=== PATIENT | male | born 1990 | race Caucasian/White ===

== ENCOUNTER 2018-09-10 20:57 | Emergency (ER) | payer OTHER ==
[2018-09-10 21:33] LABS: BILIRUBIN,URINE NEGATIVE (NEGATIVE); CLARITY,URINE CLEAR (CLEAR); GLUCOSE, URINE (UA) NEGATIVE (NEGATIVE); KETONES,URINE (UA) NEGATIVE (NEGATIVE); LEUKOCYTE ESTERASE, URINE NEGATIVE (NEGATIVE); NITRITE,URINE NEGATIVE (NEGATIVE); OCCULT BLOOD,URINE NEGATIVE (NEGATIVE); PH,URINE 5.5 PH (5.0-7.5); PROTEIN,URINE NEGATIVE (NEGATIVE); UROBILINOGEN,URINE 0.2 (NORMAL) E.U./dL (NORMAL)
--- NOTE | 2018-09-10 21:53 | ED Physician Documentation ---
PD HPI BACK PAIN - Stated complaint Stated Complaint: BK/SIDE PX - Chief complaint Chief Complaint: Abd Pain - History obtained from History obtained from: Patient - History of Present Illness Timing - onset: How many weeks ago (3) Timing - duration: Weeks (3) Timing - details: Gradual onset Pain level now: 7 Location: Lower, Right Quality: Pain, Sharp, Other (Tingling) Associated symptoms: No: Fever, Weakness, Numbness, Unable to urinate, Hematuria Improves with: Nothing Similar symptoms before: Has not had sx before Recently seen: Not recently seen - Additional information Additional information: This is a 27-year-old who presents with his complaints that for the past 3 weeks he started developing right lower/flank pain was initially intermittent but has become just constant now he describes it as a tingling sensation but then sharp jabbing happens as well. Is now become a constant dull throb at a 7 out of 10. He has not taken any medications for it but then stated that he was using Excedrin and what he considers excessive dosing but his last dose was at 10 AM today. It has not seemed to help the pain at all. Denies any injury. There is no pain radiating to the leg. He is not short of breath or coughing. No abdominal pain. Denies dysuria or hematuria although he does have a history of kidney stones 5 or 6 years ago that passed spontaneously. Denies fever. Patient states that he has a history of migraines and he ran out of his migraine medication but [facility] [place] [facility] He does not know what the medication was. Review of Systems Constitutional: denies: Fever Respiratory: denies: Dyspnea, Cough GI: denies: Abdominal Pain, Nausea, Vomiting : denies: Dysuria, Frequency, Hematuria Skin: denies: Rash Musculoskeletal: reports: Back pain Neurologic: denies: Numbness PD PAST MEDICAL HISTORY - Past Medical History Past Medical History: Yes Neuro: Migraines - Past Surgical History Past Surgical History: No - Present Medications Home Medications: Ambulatory Orders Medication Instructions Recorded Confirmed No Known Home Medications 09/10/18 09/10/18 - Allergies Allergies/Adverse Reactions: Allergies Allergy/AdvReac Type Severity Reaction Status Date / Time No Known Drug Allergies Allergy Verified 09/10/18 21:05 - Social History Does the pt smoke?: No Smoking Status: Never smoker Does the pt drink ETOH?: Yes Does the pt have substance abuse?: No - Immunizations Immunizations are current?: Yes PD ED PE NORMAL - Vitals Vital signs reviewed: Yes - General General: Alert and oriented X 3, No acute distress, Well developed/nourished - HEENT HEENT: Atraumatic - Cardiac Cardiac: RRR, No murmur - Respiratory Respiratory: No respiratory distress, Clear bilaterally - Abdomen Abdomen: Normal bowel sounds, Soft, Non tender - Back Back: Other (Patient complains of pain with palpation to the right paraspinal muscles. 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 5 out of 5 ankle dorsiflexion. Sensation is intact to light touch. There is a negative straight leg raise.) - Psych Psych: Normal mood, Normal affect Results - Vitals Vitals: Vital Signs - 24 hr 09/10/18 21:03 Temperature 36.1 C L Heart Rate 71 Respiratory 16 Rate Blood Pressure 127/79 O2 Saturation 99 Oxygen O2 Source Room air - Labs Labs: Laboratory Tests 09/10/18 21:11 Urine Color YELLOW Urine Clarity CLEAR Urine pH 5.5 Ur Specific [place] <=1.005 Urine Protein NEGATIVE Urine Glucose (UA) NEGATIVE Urine Ketones NEGATIVE Urine Occult Blood NEGATIVE Urine Nitrite NEGATIVE Urine Bilirubin NEGATIVE Urine Urobilinogen 0.2 (NORMAL) Ur Leukocyte Esterase NEGATIVE Ur Microscopic Review NOT INDICATED Urine Culture Comments NOT INDICATED PD MEDICAL DECISION MAKING - ED course ED course: Patient declined anything for pain here stating that he does not want medication he just wants "peace of mind" but nothing serious is going on. His urine is negative for blood or infection. I suspect this is musculoskeletal. No indication that there is nerve impingement syndrome. Will recommend ibuprofen and offer a prescription for Flexeril if he desires. Departure - Departure Disposition: 01 Home, Self Care Clinical Impression: Acute lumbar myofascial strain Qualifiers: Encounter type: initial encounter Qualified Code(s): S39.012A - Strain of muscle, fascia and tendon of lower back, initial encounter Condition: Good Instructions: ED Sprain Strain Lumbar, Exercises Back Lower Back Stretch Follow-Up: [facility] [Provider Group] Comments: Take ibuprofen 3 to 4 tablets every 8 hours with food for the back pain. Ice can help and do stretching exercises and the discharge instructions. May use Flexeril at night to sleep if you cannot get to sleep. [facility].
[2018-09-10] MEDS ORDERED: CYCLOBENZAPRINE 10 MG Prepack 2 PO PRN (22:41)
[2018-09-10 22:53] VITALS: BP 117/78
== END 2018-09-10 22:53 | disposition home or self-care (01) ==
LOC: ED 20:57
DX: S39.012A Strain of muscle, fascia and tendon of lower back, initial encounter (principal); X58.XXXA Exposure to other specified factors, initial encounter
CPT/HCPCS: 81001; 81003; 87086; 99282; 99283

== ENCOUNTER 2018-12-16 15:04 | Emergency (ER) | payer OTHER ==
[2018-12-16 15:13] VITALS: BP 125/68
--- NOTE | 2018-12-16 15:52 | ED Physician Documentation ---
PD HPI BACK PAIN - Stated complaint Stated Complaint: BACK PAIN, CANT STAND STRAIGHT - Chief complaint Chief Complaint: Back Pain - History obtained from History obtained from: Patient - History of Present Illness Timing - onset: Today Timing - duration: Hours (3) Timing - details: Abrupt onset Pain level max: 8 Pain level now: 8 Location: Lower, Right, Left Quality: Pain, Spasm, Similar to prior episodes Associated symptoms: No: Fever, Weakness, Numbness, Incontinent of urine, Unable to urinate, Hematuria, Incontinent of stool Improves with: Rest Worsened by: Movement Contributing factors: Lifting (tried to lift a garage door.). No: Trauma, Anticoagulated, Cancer, IVDA Recently seen: Not recently seen Review of Systems Constitutional: denies: Fever, Chills : denies: Dysuria, Frequency, Hesitancy, Unable to Void, Incontinent Skin: denies: Rash Neurologic: denies: Focal weakness, Numbness, Head injury PD PAST MEDICAL HISTORY - Past Medical History Past Medical History: Yes Neuro: Migraines - Past Surgical History Past Surgical History: No - Present Medications Home Medications: Ambulatory Orders Medication Instructions Recorded Confirmed Meloxicam [Mobic] 15 mg PO DAILY PRN #20 tablet 12/16/18 Methocarbamol [Robaxin] 500 mg PO Q6H PRN #20 tablet 12/16/18 - Allergies Allergies/Adverse Reactions: Allergies Allergy/AdvReac Type Severity Reaction Status Date / Time nickel Allergy Unknown Verified 12/16/18 15:13 - Social History Does the pt smoke?: No Smoking Status: Never smoker Does the pt drink ETOH?: Yes Does the pt have substance abuse?: No - Immunizations Immunizations are current?: Yes PD ED PE NORMAL - Vitals Vital signs reviewed: Yes - General General: Alert and oriented X 3, No acute distress, Well developed/nourished - HEENT HEENT: Moist mucous membranes - Neck Neck: Supple, no meningeal sign - Cardiac Cardiac: RRR, Strong equal pulses - Respiratory Respiratory: No respiratory distress, Clear bilaterally - Abdomen Abdomen: Soft, Non tender, Non distended - Back Back: No spinal TTP, Other (Paraspinal muscle spasm present.) - Derm Derm: Warm and dry - Extremities Extremities: Other (Normal bilateral lower extremity patellar and ankle jerk reflexes. Normal great toe extension bilaterally. 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, No motor deficit, No sensory deficit, Normal speech - Psych Psych: Normal mood, Normal affect Results - Vitals Vitals: Vital Signs - 24 hr 12/16/18 15:08 Temperature 98.2 C H Heart Rate 85 Respiratory 16 Rate Blood Pressure 125/68 O2 Saturation 100 Oxygen O2 Source Room air PD MEDICAL DECISION MAKING - ED course Complexity details: reviewed old records, considered differential (No cauda equina, no spinal epidural abscess, no fracture, no aortic dissection or evidence of aneursym rupture), d/w patient ED course: 28-year-old male presents to the emergency department with low back strain and spasm. No indication for acute imaging. No evidence of cauda equina, epidural abscess. Declines pain medication here. Will prescribe medication for home and he can follow-up with his doctor. Patient counseled regarding signs and symptoms for which I believe and urgent re-evaluation would be necessary. Patient with good understanding of and agreement to plan and is comfortable going home at this time This document was made in part using voice recognition software. While efforts are made to proofread this document, sound alike and grammatical errors may occur. Departure - Departure Disposition: Home, Self Care Clinical Impression: Acute lumbar myofascial strain Qualifiers: Encounter type: initial encounter Qualified Code(s): S39.012A - Strain of muscle, fascia and tendon of lower back, initial encounter Condition: Good Instructions: ED Sprain Strain Lumbar Follow-Up: [facility] [Provider Group] - Within 1 week Prescriptions: Meloxicam [Mobic] 15 mg PO DAILY PRN #20 tablet PRN Reason: pain Methocarbamol [Robaxin] 500 mg PO Q6H PRN #20 tablet PRN Reason: back spasm Comments: Use the medications as prescribed. Return if you worsen. Follow-up with your doctor for further care. Do not drive or operate heavy machinery while taking the Robaxin. Continue gentle stretching at home. Forms: Activity restrictions Discharge Date/Time: 12/16/18 15:58
== END 2018-12-16 15:58 | disposition home or self-care (01) ==
LOC: ED 15:04
DX: S39.012A Strain of muscle, fascia and tendon of lower back, initial encounter (principal); X50.0XXA Overexertion from strenuous movement or load, initial encounter; Y93.89 Activity, other specified; Y92.008 Other place in unspecified non-institutional (private) residence as the place of occurrence of the external cause; M62.830 Muscle spasm of back
CPT/HCPCS: 99282; 99284

== ENCOUNTER 2019-01-30 09:36 | Emergency (ER) | payer OTHER ==
[2019-01-30 10:09] LABS: BASOPHILS % (AUTO) 0.6 %; EOSINOPHILS # (AUTO) 0.1 10^3/uL (0.0-0.7); EOSINOPHILS % (AUTO) 2.2 %; HGB - HEMOGLOBIN 13.5 g/dL (14.0-18.0); LYMPHOCYTES # (AUTO) 1.8 10^3/uL (1.5-3.5); LYMPHOCYTES % (AUTO) 35.3 %; MEAN CORPUSCULAR HEMOGLOBIN 31.2 pg (27.0-31.0); MEAN CORPUSCULAR HGB CONC 33.7 g/dL (32.0-36.0); MEAN CORPUSCULAR VOLUME 92.6 fL (80.0-94.0); MEAN PLATELET VOLUME 9.8 fL (7.4-11.4); MONOCYTES # (AUTO) 0.5 10^3/uL (0.0-1.0); MONOCYTES % (AUTO) 10.4 %; NEUTROPHILS # (AUTO) 2.6 10^3/uL (1.5-6.6); NEUTROPHILS % (AUTO) 51.3 %; PLT - PLATELET COUNT 283 10^3/uL (130-450); RED BLOOD COUNT 4.33 10^6/uL (4.70-6.10); RED CELL DISTRIBUTION WIDTH 12.2 % (12.0-15.0)
[2019-01-30 10:17] LABS: BILIRUBIN,URINE NEGATIVE (NEGATIVE); GLUCOSE, URINE (UA) NEGATIVE (NEGATIVE); KETONES,URINE (UA) NEGATIVE (NEGATIVE); LEUKOCYTE ESTERASE, URINE NEGATIVE (NEGATIVE); NITRITE,URINE NEGATIVE (NEGATIVE); OCCULT BLOOD,URINE NEGATIVE (NEGATIVE); PH,URINE 6.5 PH (5.0-7.5); PROTEIN,URINE NEGATIVE (NEGATIVE); UROBILINOGEN,URINE 0.2 (NORMAL) E.U./dL (NORMAL)
[2019-01-30 10:19] LABS: ALBUMIN 4.4 g/dL (3.2-5.5); ALBUMIN/GLOBULIN RATIO 1.6 (1.0-2.2); CALCIUM 9.1 mg/dL (8.5-10.3); CREATININE 0.7 mg/dL (0.6-1.2); TOTAL PROTEIN 7.2 g/dL (6.7-8.2)
[2019-01-30 10:20] LABS: CLARITY,URINE CLEAR (CLEAR)
--- NOTE | 2019-01-30 11:33 | ED Physician Documentation ---
PD HPI NVD - Stated complaint Stated Complaint: N/V - Chief complaint Chief Complaint: Abd Pain - History obtained from History obtained from: Patient - History of Present Illness Timing - onset: Yesterday Timing - details: Abrupt onset Associated symptoms: No: Fever, Abdominal pain, Hematemesis, Dizzy, Near syncope / syncope, Dysuria Recently seen: Not recently seen - Additonal information Additional information: This is a 28-year-old presents with complaints that he had a head cold for the past 3 days and then last night started vomiting after he been out and eaten sushi and Ramen at a restaurant. Was also having diarrhea through the night. His last emesis was around 730 this morning but he still feels a little nauseous. He tried taking Pepto-Bismol but that did not alleviate his symptoms. Has some lower back pain that he thinks is just tightness from all the vomiting and he feels overall weak but has not been lightheaded or passed out. There was no blood in the emesis or diarrhea. Patient has had yellow nasal mucus and a lot of postnasal drip but denies ear pain or sore throat. He has not had fever. He had a cough but that has resolved. Denies dysuria. 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 Review of Systems Constitutional: denies: Fever Ears: denies: Ear pain Nose: reports: Rhinorrhea / runny nose, Congestion Throat: denies: Sore throat Cardiac: denies: Chest pain / pressure, Palpitations Respiratory: reports: Cough (Resolved). denies: Dyspnea GI: reports: Nausea, Vomiting, Diarrhea. denies: Abdominal Pain : denies: Dysuria, Frequency Musculoskeletal: reports: Back pain Neurologic: denies: Syncope PD PAST MEDICAL HISTORY - Past Medical History Neuro: Migraines - Past Surgical History Past Surgical History: No - Present Medications Home Medications: Ambulatory Orders Medication Instructions Recorded Confirmed Ondansetron Odt [Zofran] 4 mg TL Q6H PRN #10 tablet 01/30/19 - Allergies Allergies/Adverse Reactions: Allergies Allergy/AdvReac Type Severity Reaction Status Date / Time nickel Allergy Unknown Verified 01/30/19 09:48 - Social History Does the pt smoke?: No Smoking Status: Never smoker Does the pt drink ETOH?: Yes Does the pt have substance abuse?: No - Immunizations Immunizations are current?: Yes PD ED PE NORMAL - Vitals Vital signs reviewed: Yes - General General: Alert and oriented X 3, No acute distress, Well developed/nourished - HEENT HEENT: Atraumatic, PERRL, Ears normal, Moist mucous membranes, Pharynx benign - Neck Neck: Supple, no meningeal sign, No adenopathy - Cardiac Cardiac: RRR, No murmur, Strong equal pulses - Respiratory Respiratory: No respiratory distress, Clear bilaterally - Abdomen Abdomen: Normal bowel sounds, Soft, Non tender, Non distended, No organomegaly - Derm Derm: Other (There is a erythematous slightly scabbed rash in the midline just above his pant line that he says is from a belt buckle.) - Extremities Extremities: No deformity - Neuro Neuro: Alert and oriented X 3, slip box changer 2-12 intact, No motor deficit, No sensory deficit, Normal speech - Psych Psych: Normal mood, Normal affect Results - Vitals Vitals: Vital Signs - 24 hr 01/30/19 09:47 Temperature 36.9 C Heart Rate 73 Respiratory 20 Rate Blood Pressure 118/67 O2 Saturation 99 Oxygen O2 Source Room air - Labs Labs: Laboratory Tests 01/30/19 01/30/19 01/30/19 09:55 10:00 10:00 WBC 5.0 RBC 4.33 L Hgb 13.5 L Hct 40.1 L MCV 92.6 MCH 31.2 H MCHC 33.7 RDW 12.2 Plt Count 283 MPV 9.8 Neut # (Auto) 2.6 Lymph # (Auto) 1.8 [place] # (Auto) 0.5 Eos # (Auto) 0.1 Baso # (Auto) 0.0 Absolute Nucleated RBC 0.00 Nucleated RBC % 0.0 Sodium 138 Potassium 4.0 Chloride 103 Carbon Dioxide 26 Anion Gap 9.0 BUN 16 Creatinine 0.7 Estimated GFR (MDRD) 133 Glucose 112 H Calcium 9.1 Total Bilirubin 1.0 AST 28 ALT 23 Alkaline Phosphatase 69 Total Protein 7.2 Albumin 4.4 Globulin 2.8 Albumin/Globulin Ratio 1.6 Lipase 31 Urine Color YELLOW Urine Clarity CLEAR Urine pH 6.5 Ur Specific [place] 1.015 Urine Protein NEGATIVE Urine Glucose (UA) NEGATIVE Urine Ketones NEGATIVE Urine Occult Blood NEGATIVE Urine Nitrite NEGATIVE Urine Bilirubin NEGATIVE Urine Urobilinogen 0.2 (NORMAL) Ur Leukocyte Esterase NEGATIVE Ur Microscopic Review NOT INDICATED Urine Culture Comments NOT INDICATED PD MEDICAL DECISION MAKING - ED course Complexity details: reviewed results, d/w patient ED course: Labs are normal. At this point is unclear if the vomiting is related all the postnasal drip or has something to do with the meal that he ate last night. He has not vomited in about 3-1/2 hours. He does have some back tightness organ to give him an injection of Toradol IM. He drove himself here so I will provide a prescription for Zofran and we talked about how to slowly advance his diet. He gets a significant headache when he takes Zofran but did elect to take the prescription in case he keeps vomiting. He asked me for a note to be off work for 2 days. I agreed to give him a note for tonight but if he still feeling so poorly that he can go to work he should be reevaluated tomorrow and he stated that he would go to medical tomorrow if needed. Departure - Departure Disposition: 01 Home, Self Care Clinical Impression: URI, acute Vomiting Qualifiers: Vomiting type: unspecified Vomiting Intractability: non-intractable Nausea presence: with nausea Qualified Code(s): R11.2 - Nausea with vomiting, unspecified Condition: Good Instructions: ED Diet Vomiting Diarrhea Follow-Up: [facility] [Provider Group] Prescriptions: Ondansetron Odt [Zofran] 4 mg TL Q6H PRN #10 tablet PRN Reason: Nausea / Vomiting Comments: Home and rest today. Use the Zofran if he continued to have nausea and/or vomiting. Advance her diet very slowly starting with just clear liquids, Jell-O chicken broth followed by the BRAT (bananas, rice, applesauce and toast) diet. [place] are [place] feeling that you cannot work tomorrow night. Forms: Activity restrictions
[2019-01-30] MEDS ORDERED: KETOROLAC 60 MG/2 ML VIAL IM STA (11:53)
[2019-01-30 12:20] VITALS: BP 131/91
== END 2019-01-30 12:22 | disposition home or self-care (01) ==
LOC: ED 09:36
DX: J06.9 Acute upper respiratory infection, unspecified (principal); R11.2 Nausea with vomiting, unspecified; R19.7 Diarrhea, unspecified; M54.5 Low back pain; R21 Rash and other nonspecific skin eruption
CPT/HCPCS: 36415; 80053; 81001; 81003; 83690; 85025; 87086; 96372; 99283; 99284

== ENCOUNTER 2019-08-17 21:41 | Emergency (ER) | payer OTHER ==
--- NOTE | 2019-08-17 21:55 | ED Physician Documentation ---
History of Present Illness - Stated complaint Stated Complaint: VOMITED BLOOD - Chief complaint Chief Complaint: Abd Pain - History obtained from History obtained from: Patient (28-year-old male with epigastric pain and vomiting. [employer] no fevers.Also reports one episode of blood in his vomit denies anticoagulant use denies excessive alcohol use.) Review of Systems Constitutional: reports: Reviewed and negative Eyes: reports: Reviewed and negative Ears: reports: Reviewed and negative Nose: reports: Reviewed and negative Throat: reports: Reviewed and negative Cardiac: reports: Reviewed and negative Respiratory: reports: Reviewed and negative GI: reports: Abdominal Pain, Nausea, Vomiting : reports: Reviewed and negative Skin: reports: Reviewed and negative Musculoskeletal: reports: Reviewed and negative Neurologic: reports: Reviewed and negative Psychiatric: reports: Reviewed and negative Endocrine: reports: Reviewed and negative Immunocompromised: reports: Reviewed and negative PD PAST MEDICAL HISTORY - Past Medical History Past Medical History: Yes Cardiovascular: None Respiratory: None Neuro: Migraines Endocrine/Autoimmune: None GI: None : None HEENT: None Psych: None Musculoskeletal: None Derm: None - Past Surgical History Past Surgical History: No - Present Medications Home Medications: Ambulatory Orders Medication Instructions Recorded Confirmed Ondansetron Odt [Zofran] 4 mg TL Q6H PRN #10 tablet 01/30/19 - Allergies Allergies/Adverse Reactions: Allergies Allergy/AdvReac Type Severity Reaction Status Date / Time nickel Allergy Unknown Verified 08/17/19 21:55 - Social History Does the pt smoke?: No Smoking Status: Never smoker Does the pt drink ETOH?: Yes Does the pt have substance abuse?: No - Immunizations Immunizations are current?: No - POLST Patient has POLST: No PD ED PE NORMAL - Vitals Vital signs reviewed: Yes - General General: Alert and oriented X 3, No acute distress, Well developed/nourished - HEENT HEENT: PERRL, Moist mucous membranes, Pharynx benign - Neck Neck: Supple, no meningeal sign - Cardiac Cardiac: RRR, No murmur, Strong equal pulses - Respiratory Respiratory: No respiratory distress, Clear bilaterally - Abdomen Abdomen: Normal bowel sounds, Soft, Non distended, Other (Diffuse tenderness in the epigastric region negative Mack's negative Rovsing's negative psoas's no midline abdominal pulsatile mass) - Back Back: No CVA TTP, No spinal TTP - Derm Derm: Normal color, Warm and dry, No rash - Extremities Extremities: No deformity, No tenderness to palpate, Normal ROM s pain, No edema, No calf tenderness / cord - Neuro Neuro: Alert and oriented X 3, 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, No motor deficit, No sensory deficit, Normal speech - Psych Psych: Normal mood, Normal affect Results - Vitals Vitals: Vital Signs - 24 hr 08/17/19 08/17/19 08/17/19 21:52 22:21 22:45 Temperature 36.7 C Heart Rate 63 59 L Respiratory 17 16 17 Rate Blood Pressure 118/69 120/79 O2 Saturation 99 99 08/17/19 08/17/19 23:06 23:58 Temperature Heart Rate 64 58 L Respiratory 16 18 Rate Blood Pressure 117/74 113/81 H O2 Saturation 99 98 Oxygen O2 Source Room air - Labs Labs: Laboratory Tests 08/17/19 08/17/19 08/17/19 22:10 22:10 22:10 WBC 6.5 RBC 4.05 L Hgb 12.9 L Hct 37.7 L MCV 93.1 MCH 31.9 H MCHC 34.2 RDW 13.0 Plt Count 283 MPV 9.8 Neut # (Auto) 2.7 Lymph # (Auto) 2.8 [place] # (Auto) 0.7 Eos # (Auto) 0.2 Baso # (Auto) 0.1 Absolute Nucleated RBC 0.00 Nucleated RBC % 0.0 PT 12.0 INR 1.1 APTT 33.6 H Sodium 140 Potassium 4.1 Chloride 103 Carbon Dioxide 28 Anion Gap 9.0 BUN 15 Creatinine 0.8 Estimated GFR (MDRD) 114 Glucose 99 Lactic Acid Calcium 9.1 Total Bilirubin 1.3 H AST 26 ALT 20 Alkaline Phosphatase 63 Total Protein 6.9 Albumin 4.3 Globulin 2.6 Albumin/Globulin Ratio 1.7 Lipase 32 Ethyl Alcohol < 5.0 08/17/19 22:10 WBC RBC Hgb Hct MCV MCH MCHC RDW Plt Count MPV Neut # (Auto) Lymph # (Auto) [place] # (Auto) Eos # (Auto) Baso # (Auto) Absolute Nucleated RBC Nucleated RBC % PT INR APTT Sodium Potassium Chloride Carbon Dioxide Anion Gap BUN Creatinine Estimated GFR (MDRD) Glucose Lactic Acid 0.8 Calcium Total Bilirubin AST ALT Alkaline Phosphatase Total Protein Albumin Globulin Albumin/Globulin Ratio Lipase Ethyl Alcohol PD MEDICAL DECISION MAKING - ED course Complexity details: reviewed results, re-evaluated patient (Pain resolved tolerated p.o. 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.), considered differential (Pancreatitis, cholecystitis, peptic ulcer disease, appendicitis), d/w patient, d/w family, other (Recommend outpatient treatment with Pepcid and/or Prilosec.) Departure - Departure Disposition: 01 Home, Self Care Clinical Impression: Peptic ulcer disease Abdominal pain Qualifiers: Abdominal location: epigastric Qualified Code(s): R10.13 - Epigastric pain Gastritis Qualifiers: Gastritis type: unspecified gastritis Chronicity: unspecified Gastritis bleeding: presence of bleeding unspecified Qualified Code(s): K29.70 - Gastritis, unspecified, without bleeding Condition: Stable Instructions: ED PUD Follow-Up: your, doctor [Other] Comments: Follow-up with medical at [facility] would be tomorrow morning. Start taking [id number] Pepcid and [id number] Prilosec as directed. Avoid alcohol use. Discharge Date/Time: 08/18/19 00:06
[2019-08-17] MEDS ORDERED: FAMOTIDINE 20 MG/2 ML SYRINGE IVP STA (22:11)
[2019-08-17] MEDS ORDERED: SODIUM CHLORIDE 0.9% 1,000 ML IV STA (22:11)
[2019-08-17] MEDS ORDERED: ONDANSETRON 4 MG/2 ML VIAL IVP STA (22:11)
[2019-08-17] MEDS ORDERED: MORPHINE 2 MG/ML CARPUJECT IVP STA (22:11)
[2019-08-17 22:24] LABS: BASOPHILS # (AUTO) 0.1 10^3/uL (0.0-0.1); BASOPHILS % (AUTO) 0.8 %; EOSINOPHILS # (AUTO) 0.2 10^3/uL (0.0-0.7); EOSINOPHILS % (AUTO) 3.3 %; HGB - HEMOGLOBIN 12.9 g/dL (14.0-18.0); LYMPHOCYTES # (AUTO) 2.8 10^3/uL (1.5-3.5); LYMPHOCYTES % (AUTO) 43.2 %; MEAN CORPUSCULAR HEMOGLOBIN 31.9 pg (27.0-31.0); MEAN CORPUSCULAR HGB CONC 34.2 g/dL (32.0-36.0); MEAN CORPUSCULAR VOLUME 93.1 fL (80.0-94.0); MEAN PLATELET VOLUME 9.8 fL (7.4-11.4); MONOCYTES # (AUTO) 0.7 10^3/uL (0.0-1.0); MONOCYTES % (AUTO) 10.2 %; NEUTROPHILS # (AUTO) 2.7 10^3/uL (1.5-6.6); NEUTROPHILS % (AUTO) 42.2 %; PLT - PLATELET COUNT 283 10^3/uL (130-450); RED BLOOD COUNT 4.05 10^6/uL (4.70-6.10); WHITE BLOOD COUNT 6.5 x10^3/uL (4.8-10.8)
[2019-08-17 22:29] LABS: INR 1.1 (0.8-1.2)
[2019-08-17 22:36] LABS: PARTIAL THROMBOPLASTIN TIME 33.6 secs (24.9-33.3)
[2019-08-17 22:37] LABS: ALBUMIN 4.3 g/dL (3.2-5.5); ALBUMIN/GLOBULIN RATIO 1.7 (1.0-2.2); ALKALINE PHOSPHATASE 63 IU/L (42-121); ALT ALANINE AMINOTRANSFERASE 20 IU/L (10-60); AST ASPARTATE AMINOTRANSFERASE 26 IU/L (10-42); BILIRUBIN,TOTAL 1.3 mg/dL (0.2-1.0); BUN - BLOOD UREA NITROGEN 15 mg/dL (6-20); CALCIUM 9.1 mg/dL (8.5-10.3); CARBON DIOXIDE - CO2 28 mmol/L (21-32); CHLORIDE 103 mmol/L (101-111); CREATININE 0.8 mg/dL (0.6-1.2); GLUCOSE 99 mg/dL (70-100); LIPASE 32 U/L (22-51); SODIUM 140 mmol/L (135-145); TOTAL PROTEIN 6.9 g/dL (6.7-8.2)
[2019-08-17] MEDS ORDERED: IOVERSOL 320 100 ML VIAL IVP ONE (22:42)
[2019-08-18 00:03] VITALS: BP 113/81
[2019-08-18] MEDS ORDERED: IOVERSOL 320 100 ML VIAL IVP ONE (04:03)
--- NOTE | 2019-08-18 07:29 | CT Report ---
PROCEDURE: Abdomen/Pelvis W INDICATIONS: abd pain CONTRAST: IV CONTRAST: Optiray 320 ml: 100 PO CONTRAST: *NO PO CONTRAST TECHNIQUE: After the administration of oral and intravenous contrast, 5 mm thick sections acquired from the diap hragms to the symphysis. 5 mm thick coronal and sagittal reformats were acquired. For radiation dos e reduction, the following was used: automated exposure control, adjustment of mA and/or kV accordin g to patient size. COMPARISON: None. FINDINGS: Image quality: Excellent. ABDOMEN: Lung bases: Lung bases are clear. Heart size is normal. Solid organs: Liver and spleen are normal in size and enhancement. Gallbladder is decompressed but otherwise Biliary system is non dilated. Pancreas enhances normally. No adrenal nodules. Kidneys demonstrate normal size and enhancement, without hydronephrosis. Peritoneum and bowel: Bowel loops demonstrate normal wall thickness and caliber. No free fluid or a ir. Normal appendix. Nodes and vessels: No retroperitoneal or mesenteric adenopathy by size criteria. Aorta and inferior vena cava are normal in size. Miscellaneous: No ventral hernias. PELVIS: Genitourinary: Bladder wall thickness is normal. Miscellaneous: No inguinal hernias or adenopathy. Bones: No suspicious bony lesions. No vertebral body compression fractures. IMPRESSION: CT abdomen and pelvis without acute abnormalities. No significant discrepancy with initial interpretation by overnight radiologist. Reviewed by: Eliot Baca MD on 08/18/2019 7:27 AM PDT Approved by: Eliot Baca MD on 08/18/2019 7:27 AM PDT Station ID: [id number]
== END 2019-08-18 00:06 | disposition home or self-care (01) ==
LOC: ED 21:41
DX: K27.9 Peptic ulcer, site unspecified, unspecified as acute or chronic, without hemorrhage or perforation (principal); K29.70 Gastritis, unspecified, without bleeding
CPT/HCPCS: 36415; 74177; 80053; 80320; 83605; 83690; 85025; 85610; 85730; 96361; 96374; 99283; 99284; Q9967

== ENCOUNTER 2020-05-17 18:43 | Emergency (ER) | payer OTHER ==
[2020-05-17] MEDS ORDERED: KETOROLAC 60 MG/2 ML VIAL IM STA (19:11)
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
[2020-05-17 20:59] VITALS: BP 118/74
== END 2020-05-17 20:59 | disposition home or self-care (01) ==
LOC: ED 18:43
DX: S16.1XXA Strain of muscle, fascia and tendon at neck level, initial encounter (principal); S39.012A Strain of muscle, fascia and tendon of lower back, initial encounter; V89.2XXA Person injured in unspecified motor-vehicle accident, traffic, initial encounter; Y93.89 Activity, other specified; Y92.410 Unspecified street and highway as the place of occurrence of the external cause
CPT/HCPCS: 96372; 99283; 99284

== ENCOUNTER 2020-07-17 10:43 | Outpatient (CLI) | payer OTHER ==
[2020-07-17 11:35] VITALS: BP 115/79
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
== END 2020-07-17 10:44 | disposition home or self-care (01) ==
LOC: SC 10:43
PROVIDERS: ATTEND Nurse Practitioner Family
DX: G47.10 Hypersomnia, unspecified (principal); R06.81 Apnea, not elsewhere classified; G47.8 Other sleep disorders; R51.9 Headache, unspecified; R06.83 Snoring; E66.3 Overweight; Z68.26 Body mass index [BMI] 26.0-26.9, adult; F17.219 Nicotine dependence, cigarettes, with unspecified nicotine-induced disorders
CPT/HCPCS: 99202; 99212

== ENCOUNTER 2020-09-27 19:33 | Outpatient (CLI) | payer OTHER | END 2020-09-27 19:34 | disposition home or self-care (01) | LOC: SC 19:33 | PROVIDERS: ATTEND Nurse Practitioner Family | DX: R06.83 Snoring (principal); R06.81 Apnea, not elsewhere classified; G47.8 Other sleep disorders; G47.10 Hypersomnia, unspecified | CPT/HCPCS: 95810 ==

== ENCOUNTER 2020-10-11 15:31 | Outpatient (CLI) | payer OTHER ==
--- NOTE | 2020-10-11 15:52 | SLEEP CARE CONSULTATION ---
Information from patient questionnaire entered by Yanelis Hendrickson. I have reviewed and concur with the information entered by Yanelis Hendrickson. This document represents the service I personally performed and the decisions made by , Poppy Roberts ARNP. History of Present Illness Service Date and Time: 10/11/2020 153 Initial [place] Sleepiness Scale score: 16 (in 2020) Current [place] Sleepiness Scale score: 13 Additional HPI information: DRAKE GARSIA returns for follow up and results of the recently performed polysomnography. The patient was informed of the following findings: Patient with no significant sleep disordered breathing with an average AHI of 1.7 and guerrero oxygen saturation of 91%. Patient did not sleep non-supine during study. I explained the pathophysiology behind obstructive sleep apnea. Patient does not have sleep apnea and was advised how weight gain could increase the risk of developing sleep apnea in the future. Patient has light snoring. Snoring can be reduced by weight loss. Weight loss is best achieved with diet consult. Patient instructed to contact PCP for referral. Snoring can also be treated with an oral appliance from a dentist. Advised to check insurance coverage. In addition, an ENT evaluation can be do to see if other treatment is indicated. Patient counseled not drink alcohol less than 4 hours before bedtime as it can increase snoring and apnea. Patient was cautioned about risks of drowsy driving until sleepiness symptoms resolve. Sleep Study - Results Type of Sleep Study: Polysomnography Prior sleep studies: No Polysomnography/Home Sleep Study results: IMPRESSION: The quality of the study is good. The patient had normal sleep efficiency. The sleep architecture was normal as well. Respiratory monitoring showed no significant sleep disordered breathing (AHI = 1.7) or hypoxemia (guerrero oxygen saturation of 91%). The patient only slept supine during this study (supine AHI = 1.7; non-supine = 0.00). Snore was light in intensity. There was no significant periodic leg movement of sleep. Cardiac rhythm was normal sinus rhythm without significant arrhythmia. No abnormal behavior (parasomnia) observed during the night. Allergies and Home Medications Home medication list reviewed: Yes (no changes) Review of Systems Review of systems same as previous: Yes (no changes) Physical Exam Heart Rate: 69 O2 Saturation: 97 Height: 5 ft 7 in Weight: 177 lb Body Mass Index: 27.7 BMI Classification: Overweight Impression and Plan Snoring but no significant sleep disordered breathing. Patient advised that often weight loss will reduce snoring as well as apnea risk. An oral appliance can also be used for snoring. This would require a dental consultation. Patient cautioned not to use other online appliances as can cause bite issues. A list of accredited dentists in area and one local dentist who makes oral appliances available in the office. Patient is advised to check if insurance will cover. An ENT consult can also be helpful to determine if any other treatment is an option. * Attempt to lose weight * Avoid alcohol consumption near bedtime * The patient is cautioned about driving until sleepiness is completely resolved. * Return as needed. Counseling Topics: Weight loss health impact Visit Type: In Office Time Spent with Patient (minutes): 10 Provider Statement: I spent 100% of the Face to Face Visit with the patient with greater than 50% spent counseling the patient and coordination of care.
== END 2020-10-11 15:32 | disposition home or self-care (01) ==
LOC: SC 15:31
PROVIDERS: ATTEND Nurse Practitioner Family
DX: R06.83 Snoring (principal)
CPT/HCPCS: 99212

== ENCOUNTER 2020-12-29 19:54 | Emergency (ER) | payer OTHER ==
[2020-12-29] MEDS: PROCHLORPERAZINE 10 MG/2 ML VIAL IVP STA (20:26)
[2020-12-29] MEDS: diphenhydrAMINE INJ 50 MG/ML VIAL IVP STA (20:26)
[2020-12-29] MEDS: SODIUM CHLORIDE 0.9% 1,000 ML IV STA (20:27)
--- NOTE | 2020-12-29 20:29 | ED Physician Documentation ---
History of Present Illness - Stated complaint Stated Complaint: MIGRAINE - Chief complaint Chief Complaint: Neuro - Additonal information Additional information: 30-year-old male presents emergency department for evaluation of 4 days general ized headache with photosensitivity. This was gradual onset and consistent with his history of previous migraine. He typically takes Imitrex which will arrest the headache but he thinks he may have taken it too late. He has also tried multiple doses of Excedrin headache without relief. No fevers neck pain. No falls or trauma. Not associated with sexual activity. Positive tobacco use but no alcohol or illicit drug use otherwise. He does appear very well. Review of Systems Constitutional: denies: Fever Eyes: reports: Photophobia Ears: reports: Reviewed and negative Nose: reports: Reviewed and negative Throat: reports: Reviewed and negative Cardiac: reports: Reviewed and negative GI: reports: Reviewed and negative : reports: Reviewed and negative Skin: reports: Reviewed and negative Neurologic: reports: Headache PD PAST MEDICAL HISTORY - Past Medical History Past Medical History: Yes Cardiovascular: None Respiratory: None Neuro: Migraines Endocrine/Autoimmune: None GI: None : None HEENT: None Psych: None Musculoskeletal: None Derm: None - Past Surgical History Past Surgical History: No - Present Medications Home Medications: Ambulatory Orders Medication Instructions Recorded Confirmed Dextroamphetamine/Amphetamine 20 mg PO QID 12/29/20 12/29/20 [Dextroamp-Amphetamine 5 mg Tab] - Allergies Allergies/Adverse Reactions: Allergies Allergy/AdvReac Type Severity Reaction Status Date / Time nickel Allergy Unknown Verified 12/29/20 20:03 - Social History Does the pt smoke?: Yes Smoking Status: Current every day smoker Does the pt drink ETOH?: Yes Does the pt have substance abuse?: No - Immunizations Immunizations are current?: No - POLST Patient has POLST: No PD ED PE NORMAL - General General: Alert and oriented X 3, No acute distress - HEENT HEENT: PERRL - Neck Neck: Supple, no meningeal sign - Cardiac Cardiac: RRR, No murmur - Respiratory Respiratory: Clear bilaterally - Abdomen Abdomen: Normal bowel sounds, Soft, Non tender, Non distended - Back Back: No CVA TTP, No spinal TTP - Derm Derm: Normal color, Warm and dry, No rash - Extremities Extremities: No deformity, No tenderness to palpate, Normal ROM s pain - Neuro Neuro: Alert and oriented X 3, rn charge 2-12 intact, No motor deficit, Normal speech Eye Opening: Spontaneous Motor: Obeys Commands Verbal: Oriented GCS Score: 15 Results - Vitals Vitals: Vital Signs - 24 hr 12/29/20 12/29/20 20:01 21:00 Temperature 36.7 C Heart Rate 88 66 Respiratory 16 18 Rate Blood Pressure 136/86 H 121/81 H O2 Saturation 100 99 Oxygen O2 Source Room air PD MEDICAL DECISION MAKING - ED course Complexity details: reviewed results, re-evaluated patient, considered differential, d/w patient ED course: Well-appearing 30-year-old male presents emergency department for evaluation of 4 days headache that is typical of his previous migraines. Gradual onset. No associated fevers or vomiting. He does endorse photophobia. He did take his rescue medicine Imitrex but it did not help as he thinks he took it far too late in the course. Patient was given a liter of IV fluid Decadron Benadryl and Compazine here in the ER with nearly full relief of his headache. Patient desires to be discharged home encourage close follow-up with PCP. Emergent return precautions discussed. Departure - Departure Disposition: 01 , Self Care Clinical Impression: Migraine headache Qualifiers: Migraine type: other Status migrainosus presence: without status migrainosus Intractability: not intractable Qualified Code(s): G43.809 - Other migraine, not intractable, without status migrainosus Condition: Stable Record reviewed to determine appropriate education?: Yes Instructions: ED Headache Migraine Comments: Juan you are seen here in the ER today for a headache that is most consistent with your history of migraines. You were given IV fluids, Compazine Benadryl which seemed to fully resolve the headache. You were given a one-time dose of Decadron here in the ER this is a steroid that should help prevent that the headache from returning. I encourage you to drink plenty of fluids and get lots of sleep tonight. If at any point your headaches worsen, you develop fevers neck pain or have uncontrolled vomiting then please return to the ER for second evaluation.
[2020-12-29] MEDS: DEXAMETHASONE 10 MG/ML VIAL PO STA (21:22)
[2020-12-29] MEDS: CHERRY SYRUP 10 ML UDC PO ONE (21:22)
[2020-12-29 21:53] VITALS: BP 124/75
== END 2020-12-29 21:52 | disposition home or self-care (01) ==
LOC: ED 19:54
DX: G43.809 Other migraine, not intractable, without status migrainosus (principal); F17.200 Nicotine dependence, unspecified, uncomplicated
CPT/HCPCS: 96374; 99283; A9270; J1200

== ENCOUNTER 2022-01-27 07:07 | Emergency (ER) | payer OTHER ==
[2022-01-27 07:15] VITALS: BP 119/69
--- NOTE | 2022-01-27 07:56 | ED Physician Documentation ---
History of Present Illness - Stated complaint Stated Complaint: FEVER/ACHY - Chief complaint Chief Complaint: General - History obtained from History obtained from: Patient - Additonal information Additional information: The patient comes to the emergency department chief complaint of body aches, fever, fatigue, and loss of appetite over the last couple of days. He states that he has not been vaccinated for influenza, and his 's coworkers have all been sick with a similar illness. The patient denies any shortness of breath, cough, sore throat, rhinorrhea, or nausea/vomiting. He states he is otherwise fairly healthy. Review of Systems Ten Systems: 10 systems reviewed and negative Constitutional: reports: Fever, Chills, Myalgias, Fatigue Eyes: reports: Reviewed and negative Ears: reports: Reviewed and negative Nose: reports: Reviewed and negative Throat: reports: Reviewed and negative Cardiac: reports: Reviewed and negative Respiratory: reports: Reviewed and negative GI: reports: Reviewed and negative : reports: Reviewed and negative Skin: reports: Reviewed and negative Musculoskeletal: reports: Reviewed and negative Neurologic: reports: Reviewed and negative Psychiatric: reports: Reviewed and negative Endocrine: reports: Reviewed and negative Immunocompromised: reports: Reviewed and negative PD PAST MEDICAL HISTORY - Past Medical History Cardiovascular: None Respiratory: None Neuro: Migraines Endocrine/Autoimmune: None GI: None : None HEENT: None Psych: None Musculoskeletal: None Derm: None - Past Surgical History Past Surgical History: No - Present Medications Home Medications: Ambulatory Orders Medication Instructions Recorded Confirmed Dextroamphetamine/Amphetamine 20 mg PO QID 12/29/20 12/29/20 [Dextroamp-Amphetamine 5 mg Tab] Mupirocin 2% Oint [Bactroban 2% 1 applic TOP BID #22 gm 10/22/21 Oint] cephALEXin [Keflex] 500 mg PO Q6H #28 cap 10/22/21 - Allergies Allergies/Adverse Reactions: Allergies Allergy/AdvReac Type Severity Reaction Status Date / Time nickel Allergy Unknown Verified 01/27/22 07:15 - Social History Does the pt smoke?: Yes Smoking Status: Current every day smoker Does the pt drink ETOH?: Yes Does the pt have substance abuse?: No - Immunizations Immunizations are current?: No - POLST Patient has POLST: No PD ED PE NORMAL - Vitals Vital signs reviewed: Yes - General General: Alert and oriented X 3, No acute distress, Well developed/nourished, Other (The patient appears mildly ill but otherwise in no apparent distress.) - HEENT HEENT: Atraumatic, PERRL, EOMI, Moist mucous membranes, Pharynx benign - Neck Neck: Supple, no meningeal sign - Cardiac Cardiac: RRR, No murmur, Strong equal pulses - Respiratory Respiratory: No respiratory distress, Clear bilaterally - Abdomen Abdomen: Soft, Non tender, Non distended - Derm Derm: Warm and dry - Extremities Extremities: No deformity - Neuro Neuro: Alert and oriented X 3 - Psych Psych: Normal mood, Normal affect Results - Vitals Vitals: Vital Signs - 24 hr 01/27/22 07:13 Temperature 36.5 C Heart Rate 80 Respiratory 18 Rate Blood Pressure 119/69 O2 Saturation 100 Oxygen O2 Source Room air PD MEDICAL DECISION MAKING - ED course Complexity details: considered differential, d/w patient ED course: The patient stated that he did not really wish to have any testing done; he is mainly here for a note for work and to see if we had any other suggestions for treatment. I discussed with the patient that he most likely has many many viral illnesses that are going around right now and causing such symptoms, and that there is really no cure for this. We have discussed symptomatic management at home, as well as the usual indications for return. Departure - Departure Disposition: 01 Home, Self Care Clinical Impression: Viral syndrome Condition: Stable Instructions: ED Viral Syndrome Comments: Your symptoms are consistent with one of the many viral illnesses that are going around now. Please drink plenty of fluids and take ibuprofen 600 mg every 6 hours and/your Tylenol/acetaminophen 650 mg every 4 hours, as needed for fever or aches. If you are feeling better and sooner than 5 days, you may see [employer] for clearance to go back to work. Forms: Activity restrictions
== END 2022-01-27 08:05 | disposition home or self-care (01) ==
LOC: ED 07:07
DX: B34.9 Viral infection, unspecified (principal)
CPT/HCPCS: 99282

== ENCOUNTER 2022-12-08 11:21 | Emergency (ER) | payer OTHER ==
--- NOTE | 2022-12-08 12:14 | ED Physician Documentation ---
History of Present Illness - Stated complaint Stated Complaint: LT EYE VISION - Chief complaint Chief Complaint: Heent - Additonal information Additional information: 32-year-old male presents emergency department for evaluation of acutely w orsening vision in the left eye. He reports that at 1 point he was told he had a partially detached retina that was likely present since . Over the last 4 to 5 months he has been having visual floaters in his eyes. [place] This morning he woke up and stated that his vision felt like he was looking through a dirty glass of water with black lines running through the vision. No visual field deficits. No eye pain. Denies any recent trauma. Does not wear corrective lenses or contacts. Visual acuity performed by nursing staff show left eye 20/100; right eye 20/40; Bilateral 20/50 Review of Systems Eyes: reports: Loss of vision. denies: Decreased vision, Photophobia, Discharge, Irritation Ears: reports: Reviewed and negative Nose: reports: Reviewed and negative Throat: reports: Reviewed and negative Cardiac: reports: Reviewed and negative PD PAST MEDICAL HISTORY - Past Medical History Cardiovascular: None Respiratory: None Neuro: Migraines Endocrine/Autoimmune: None GI: None : None HEENT: None Psych: None Musculoskeletal: None Derm: None - Past Surgical History Past Surgical History: No Ortho: Other - Present Medications Home Medications: Ambulatory Orders Medication Instructions Recorded Confirmed Dextroamphetamine/Amphetamine 30 mg PO DAILY 01/27/22 12/08/22 [Adderall 30 mg Tablet] - Allergies Allergies/Adverse Reactions: Allergies Allergy/AdvReac Type Severity Reaction Status Date / Time nickel Allergy Unknown Verified 01/27/22 07:15 - Social History Does the pt smoke?: Yes Smoking Status: Current every day smoker Does the pt drink ETOH?: Yes Does the pt have substance abuse?: No - Immunizations Immunizations are current?: No - POLST Patient has POLST: No PD ED PE NORMAL - General General: Alert and oriented X 3, No acute distress - HEENT HEENT: Atraumatic, PERRL, EOMI - Neck Neck: Supple, no meningeal sign, No adenopathy - Cardiac Cardiac: RRR, No murmur Results - Vitals Vitals: Vital Signs - 24 hr 12/08/22 11:24 Temperature 37 C Heart Rate 103 H Respiratory 16 Rate Blood Pressure 147/83 H O2 Saturation 99 Oxygen O2 Source Room air PD Medical Decision Making - ED course Complexity details: reviewed results, re-evaluated patient, d/w patient, d/w health management consultant (Kishore Mitchell Opthamologist) ED course: 32-year-old male presents emergency department for evaluation of acute on chronic left eye vision changes. Has been having spots and floaters in hisleft eye for about 4 months. Woke up this a.m. and had significant decrease in vision and felt like he was looking through a dirty water glass with lines streaking through the vision. Left eye vision 20/100 right eye vision 20/40. Bilateral vision 20/50. Reports a remote history of partial retinal detachment since . History is very suggestive today of a retinal injury. We do not have ophthalmology care here at [facility]. I spoke briefly on the phone with Dr. Francisco Mitchell. He reports the patient will be seen this afternoon in his office and they will make accommodations for him patient is to call at 1 PM when the office reopens from lunch. I have communicated this with the patient and he is discharged to follow-up with ophthalmology this afternoon. Departure - Departure Disposition: 01 Home, Self Care Clinical Impression: Blurred vision, left eye, Left retinal disorder Condition: Stable Follow-Up: Francisco Mitchell MD [Provider Admit Priv/Credential] - Comments: I spoke on the phone with Dr. Francisco Mitchell a local roller stainer who will be able to see you in his clinic this afternoon. The office reopens from lunch at 1 PM. Please call . The office will make arrangements for you to be seen this afternoon. His office is located at: [address] [place] [address] [place] , [facility]. [address] [facility] [phone] Forms: PCP List
[2022-12-08 12:54] VITALS: BP 138/80; O2SAT 96
== END 2022-12-08 12:50 | disposition home or self-care (01) ==
LOC: ED 11:21
DX: H35.9 Unspecified retinal disorder (principal); F17.200 Nicotine dependence, unspecified, uncomplicated
CPT/HCPCS: 99282; 99283

== ENCOUNTER 2023-02-08 14:07 | Emergency (ER) | payer OTHER ==
--- NOTE | 2023-02-08 14:21 | ED Physician Documentation ---
PD HPI URI - Stated complaint Stated Complaint: SOA,COUGH - Chief complaint Chief Complaint: Resp - History obtained from History obtained from: Patient - History of Present Illness Timing - onset: How many days ago (4) Timing duration: Days (4) Timing details: Gradual onset, Still present Associated symptoms: Fever, Chills, Nasal congestion, Dry cough, Dyspnea. No: NVD, Bilateral edema Contributing factors: No: Immunocompromised, COPD / asthma Similar symptoms before: Has not had sx before Review of Systems Constitutional: reports: Fever, Chills, Myalgias, Fatigue Nose: reports: Congestion Throat: denies: Sore throat Cardiac: denies: Chest pain / pressure, Palpitations Respiratory: reports: Cough, Wheezing GI: denies: Vomiting, Diarrhea Skin: denies: Rash, Lesions PD PAST MEDICAL HISTORY - Past Medical History Cardiovascular: None Respiratory: None Neuro: Migraines Endocrine/Autoimmune: None GI: None : None HEENT: None Psych: None Musculoskeletal: None Derm: None - Past Surgical History Past Surgical History: No Ortho: Other - Present Medications Home Medications: Ambulatory Orders Medication Instructions Recorded Confirmed Dextroamphetamine/Amphetamine 30 mg PO DAILY 01/27/22 12/08/22 [Adderall 30 mg Tablet] Albuterol Sulf [Ventolin Hfa 2 - 3 puffs INH QID #1 each 02/08/23 Inhaler] Benzonatate [Tessalon] 100 mg PO TID PRN #15 cap 02/08/23 dexAMETHasone [Decadron] 4 mg PO DAILY #5 tablet 02/08/23 - Allergies Allergies/Adverse Reactions: Allergies Allergy/AdvReac Type Severity Reaction Status Date / Time nickel Allergy Unknown Verified 01/27/22 07:15 - Social History Does the pt smoke?: Yes Smoking Status: Current every day smoker Does the pt drink ETOH?: Yes Does the pt have substance abuse?: No - Immunizations Immunizations are current?: No - POLST Patient has POLST: No PD ED PE NORMAL - Vitals Vital signs reviewed: Yes - General General: Alert and oriented X 3, No acute distress, Well developed/nourished - HEENT HEENT: Moist mucous membranes, Pharynx benign - Neck Neck: Supple, no meningeal sign, No adenopathy - Cardiac Cardiac: RRR, No murmur - Respiratory Respiratory: No respiratory distress. No: Clear bilaterally (no coarse sounds but does have central wheezing with deep breathing and cough. Has limited deep breathing as causes several repetitive coughs when attempts. ) Results - Vitals Vitals: Vital Signs - 24 hr 02/08/23 02/08/23 02/08/23 14:13 15:33 15:48 Temperature 36.8 C Heart Rate 85 80 82 Respiratory 20 20 18 Rate Blood Pressure 131/85 H 132/80 H O2 Saturation 100 98 Oxygen O2 Source Room air - Labs Labs: Laboratory Tests 02/08/23 14:17 Nasal Adenovirus (PCR) NOT DETECTED Nasal B. parapertussis DNA (PCR) NOT DETECTED Nasal Coronavir 229E PCR NOT DETECTED Nasal Coronavir HKU1 PCR NOT DETECTED Nasal Coronavir NL63 PCR NOT DETECTED Nasal Coronavir OC43 PCR NOT DETECTED Nasal Enterovir/Rhinovir PCR NOT DETECTED Nasal Influenza B PCR NOT DETECTED Nasal Influenza A PCR NOT DETECTED Nasal Parainfluen 1 PCR NOT DETECTED Nasal Parainfluen 2 PCR NOT DETECTED Nasal Parainfluen 3 PCR NOT DETECTED Nasal Parainfluen 4 PCR NOT DETECTED Nasal RSV (PCR) NOT DETECTED Nasal B.pertussis DNA PCR NOT DETECTED Nasal C.pneumoniae (PCR) NOT DETECTED [place] Human Metapneumo PCR NOT DETECTED Nasal M.pneumoniae (PCR) NOT DETECTED Nasal SARS-CoV-2 (PCR) NOT DETECTED PD Medical Decision Making - ED course Complexity details: reviewed results (viral PCR negative for main viruses. He does have URI symptoms and wheezing/hoarseness. Can treat with meds MDI, steroids, tessalon.), considered differential (having URI symptoms with dyspnea, and repetitive coughing with deep breaths and lying down flatter. Lungs here with some bronchial wheezing. seems c/w bronchiolitis type symptoms. ), d/w patient Departure - Departure Disposition: 01 Home, Self Care Clinical Impression: Upper respiratory infection Qualifiers: URI type: unspecified URI Qualified Code(s): J06.9 - Acute upper respiratory infection, unspecified Dyspnea Qualifiers: Dyspnea type: unspecified Qualified Code(s): R06.00 - Dyspnea, unspecified Condition: Stable Record reviewed to determine appropriate education?: Yes Instructions: ED Upper Resp Infec No Abx Tx Follow-Up: [facility] [Provider Group] Prescriptions: dexAMETHasone [Decadron] 4 mg PO DAILY #5 tablet Benzonatate [Tessalon] 100 mg PO TID PRN #15 cap PRN Reason: Cough Albuterol Sulf [Ventolin Hfa Inhaler] 2 - 3 puffs INH QID #1 each Comments: This does sound most likely to be a viral illness with inflammation of the bronchioles. Your lungs are clear and your oxygenation is level is good. Does not sound like a pneumonia. Typically this is a viral type illness and there is not a role for antibiotics. We do try to help with medications for breathing and decreasing the bronchial inflammation so there is less wheezing and less cough. I suggest a combination of albuterol inhaler 2 puffs 4 times a day for the next several days to week. Also Decadron steroid anti-inflammatory to help with some of the bronchial inflammation so there is easier breathing and less cough. Add benzonatate if needed for cough as well. Stay well-hydrated. Tylenol if needed for fevers or pains. I would anticipate improvement over the next few days and resolution over 3 to 5 days. I sent your prescriptions to [facility] pharmacy. As of this time the viral respiratory panel test has not resulted. We can try to call you with any positive results or you can look up the results online in the patient portal lab test. The above treatment would not necessarily change based on the virus type. Forms: PCP List, Activity restrictions Discharge Date/Time: 02/08/23 15:49
[2023-02-08] MEDS ORDERED: ALBUTEROL 1 PUFF INH STA (15:04)
[2023-02-08] MEDS ORDERED: diphenhydrAMINE ELIXIR 25 MG/10 ML UDC PO STA (15:04)
[2023-02-08] MEDS ORDERED: dexAMETHasone 4 MG TABLET PO STA (15:04)
[2023-02-08 15:22] LABS: CORONAVIRUS 229E-RESP PCR NOT DETECTED; CORONAVIRUS HKU1-RESP PCR NOT DETECTED; CORONAVIRUS NL63-RESP PCR NOT DETECTED; CORONAVIRUS OC43-RESP PCR NOT DETECTED; HUMAN METAPNEUMOVIRUS NOT DETECTED; RHINOVIRUS/ENTEROVIRUS NOT DETECTED; SARS-CoV-2 -RESP PCR PANEL NOT DETECTED
[2023-02-08 15:23] LABS: B. PARAPERTUSSIS- RESP PCR PAN NOT DETECTED; B. PERTUSSIS- RESP PCR PANEL NOT DETECTED; C. PNEUMONIAE- RESP PCR PANEL NOT DETECTED; INFLUENZA A- RESP PCR PANEL NOT DETECTED; INFLUENZA B - RESP PCR PANEL NOT DETECTED; M. PNEUMONIAE- RESP PCR PANEL NOT DETECTED; PARAINFLUENZA VIRUS 1 NOT DETECTED; PARAINFLUENZA VIRUS 2 NOT DETECTED; PARAINFLUENZA VIRUS 3 NOT DETECTED; PARAINFLUENZA VIRUS 4 NOT DETECTED; RSV- RESP PCR PANEL NOT DETECTED
[2023-02-08 15:53] VITALS: BP 132/80; O2SAT 98
== END 2023-02-08 15:49 | disposition home or self-care (01) ==
LOC: ED 14:07
DX: J06.9 Acute upper respiratory infection, unspecified (principal); R06.00 Dyspnea, unspecified; F17.200 Nicotine dependence, unspecified, uncomplicated; Z11.52 Encounter for screening for COVID-19
CPT/HCPCS: 87633; 94640; 99283